=== PATIENT | male | born 1980 | race Caucasian/White ===

== ENCOUNTER 2018-12-16 23:25 | Emergency (ER) | payer BC ==
[2018-12-17] MEDS ORDERED: Metoprolol Succinate 50 MG Tab.ER PO ONE ×2 (00:56→00:57)
[2018-12-17] MEDS ORDERED: Metoprolol Tartrate 50 MG Tab PO ONE (00:57)
--- NOTE | 2018-12-17 01:07 | EDM.PDOC ---
ED HPI GENERAL MEDICAL PROBLEM - General Chief Complaint: Cardiovascular Problem Stated Complaint: HIGH BLOOD PRESSURE,WITHDRAW Time Seen by Provider: 12/17/18 00:40 Source of Information: Reports: Patient History Limitations: Reports: No Limitations - History of Present Illness INITIAL COMMENTS - FREE TEXT/NARRATIVE: 38-year-old male sent in from [facility] because of persistent hypertension, he supposed to be on metoprolol and has not been taking his medication since July. He is transferring to [facility] tomorrow for extended treatment. He has no symptoms such as chest pain, shortness of breath or headache. 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 (see below) Other Treatments STEEL SPAR OPERATOR: none - Related Data Allergies Allergy/AdvReac Type Severity Reaction Status Date / Time No Known Allergies Allergy Verified 12/17/18 00:31 Home Meds: Home Meds Diazepam [Valium] 5 mg PO ASDIRECTED PRN 12/17/18 [History] LORazepam [Ativan] 3 mg PO ASDIRECTED PRN 12/17/18 [History] Metoprolol Succinate [Toprol XL 100mg] 100 mg PO DAILY 12/17/18 [History] cloNIDine [Catapres] 0.1 - 0.3 mg PO ASDIRECTED PRN 12/17/18 [History] Past Medical History HEENT History: Reports: Impaired Vision Cardiovascular History: Reports: Hypertension Musculoskeletal History: Reports: Gout Psychiatric History: Reports: Addiction, Anxiety, PTSD - Infectious Disease History Infectious Disease History: Reports: Chicken Pox - Past Surgical History HEENT Surgical History: Reports: Tonsillectomy Musculoskeletal Surgical History: Reports: Arthroscopic Knee Social & Family History - Tobacco Use Smoking Status *Q: Never Smoker Second Hand Smoke Exposure: No - Caffeine Use Caffeine Use: Reports: Coffee - Alcohol Use Days Per Week of Alcohol Use: 7 Number of Drinks Per Day: 20 Total Drinks Per Week: 140 - Recreational Drug Use Recreational Drug Use: Yes Drug Use in Last 12 Months: Yes Recreational Drug Type: Reports: Marijuana/Hashish Recreational Drug Use Frequency: Rarely ED ROS GENERAL - Review of Systems Review Of Systems: See Below Constitutional: Denies: Fever, Chills HEENT: Denies: Vision Change Respiratory: Denies: Shortness of Breath Cardiovascular: Denies: Chest Pain GI/Abdominal: Denies: Abdominal Pain, Nausea, Vomiting Skin: Reports: No Symptoms Neurological: Denies: Headache ED EXAM, GENERAL - Physical Exam Exam: See Below Exam Limited By: No Limitations General Appearance: Alert, No Apparent Distress Eye Exam: Bilateral Eye: Normal Inspection Respiratory/Chest: No Respiratory Distress, Lungs Clear Cardiovascular: Regular Rate, Rhythm Extremities: No: Pedal Edema Neurological: Alert Psychiatric: Normal Affect, Normal Mood Skin Exam: Warm, Dry Course - Vital Signs Last Recorded V/S: Last Vital Signs Temp 96.2 F 12/17/18 00:43 Pulse 66 12/17/18 02:38 Resp 14 12/17/18 02:38 BP 144/83 H 12/17/18 02:38 Pulse Ox 91 L 12/17/18 02:38 - Orders/Labs/Meds Meds: Medications Discontinued Medications Generic Name Dose Route Start Last Admin Trade Name Apolinar PRN Reason Stop Dose Admin Metoprolol Succinate 100 mg 12/17/18 00:57 12/17/18 01:02 Toprol Xl PO 12/17/18 00:58 100 mg ONETIME ONE Administration Metoprolol Tartrate 50 mg 12/17/18 00:57 12/17/18 01:02 Lopressor PO 12/17/18 00:58 50 mg ONETIME ONE Administration - Re-Assessments/Exams Free Text/Narrative Re-Assessment/Exam: 12/17/18 02:32 Blood pressure was initially 169/102. Patient was given 50 mg a short acting metoprolol, and 100 mg of extended release metoprolol. He was observed for the next 90 minutes and blood pressure normalized to 144/83 at discharge. He remained asymptomatic. Departure - Departure Time of Disposition: 03:48 Disposition: DC/Tfer to Other 70 Reason for Transfer *Q: Other Clinical Impression: Hypertension Qualifiers: Hypertension type: essential hypertension Qualified Code(s): I10 - Essential ( primary) hypertension Instructions: Hypertension, [id number] Referrals: PCP,None [Primary Care Provider] - Forms: ED Department Discharge Care Plan Goals: Restart metoprolol as prescribed tomorrow and finish your EtOH treatment as planned.
== END 2018-12-17 03:48 | disposition other institution (70) ==
LOC: JP.ED 23:25
DX: I10 Essential (primary) hypertension (principal); Z79.899 Other long term (current) drug therapy
CPT/HCPCS: 99284; A9270

== ENCOUNTER 2019-01-22 22:34 | Emergency (ER) | payer BC ==
[2019-01-22] MEDS ORDERED: Ondansetron 4 MG Tab.DIS PO ONE (22:56)
[2019-01-22] MEDS ORDERED: Aluminum Hydroxide/Magnesium Hydroxide/Simethicone Susp 30 ML Cup PO ONE (23:07)
--- NOTE | 2019-01-22 23:12 | EDM.PDOCBH ---
ED HPI GENERAL MEDICAL PROBLEM - General Chief Complaint: Drug or Alcohol Abuse Stated Complaint: EVAL Time Seen by Provider: 01/22/19 23:00 Source of Information: Reports: Patient, Old Records, RN History Limitations: Reports: No Limitations - History of Present Illness INITIAL COMMENTS - FREE TEXT/NARRATIVE: 38 yo male presents requesting medical clearance so he can go to detox. Was to [facility] in early December of this year. Last drank a few ounces of vodka with Mountain Dew a couple hrs ago, but vomited it up. Has been vomiting more lately. Has some epigastric pain. No blood in his emesis. Has some nausea now. Onset: Gradual Duration: Day(s):, Getting Worse Location: Reports: Abdomen Quality: Reports: Burning Severity: Moderate Improves with: Reports: None Worsens with: Reports: Other (drinking ETOH) Context: Reports: Other (hx of alcohol abuse) Associated Symptoms: Reports: Nausea/Vomiting. 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 (see below) (none) denies pain Pain Score (Numeric/FACES): 0 - Related Data Allergies Allergy/AdvReac Type Severity Reaction Status Date / Time No Known Allergies Allergy Verified 01/22/19 22:48 Home Meds: Home Meds Diazepam [Valium] 5 mg PO ASDIRECTED PRN 12/17/18 [History] LORazepam [Ativan] 3 mg PO ASDIRECTED PRN 12/17/18 [History] Metoprolol Succinate [Toprol XL 100mg] 100 mg PO DAILY 12/17/18 [History] cloNIDine [Catapres] 0.1 - 0.3 mg PO ASDIRECTED PRN 12/17/18 [History] QUEtiapine Fumarate [Quetiapine Fumarate] 25 mg PO BEDTIME 01/22/19 [History] Past Medical History HEENT History: Reports: Impaired Vision Cardiovascular History: Reports: Hypertension Musculoskeletal History: Reports: Gout Psychiatric History: Reports: Addiction, Anxiety, PTSD, Other (See Below) Other Psychiatric History: ETOH addiction - Infectious Disease History Infectious Disease History: Reports: Chicken Pox - Past Surgical History HEENT Surgical History: Reports: Tonsillectomy Musculoskeletal Surgical History: Reports: Arthroscopic Knee Social & Family History - Tobacco Use Smoking Status *Q: Never Smoker - Caffeine Use Caffeine Use: Reports: Coffee, Soda - Alcohol Use Date of Last Drink: 01/22/19 Time of Last Drink: 21:00 - Recreational Drug Use Recreational Drug Use: No ED ROS GENERAL - Review of Systems Review Of Systems: See Below Constitutional: Reports: No Symptoms HEENT: Reports: No Symptoms Respiratory: Reports: No Symptoms Cardiovascular: Reports: Lightheadedness (with standing) GI/Abdominal: Reports: Abdominal Pain (epigastric) : Reports: No Symptoms Musculoskeletal: Reports: No Symptoms Skin: Reports: No Symptoms Neurological: Reports: No Symptoms Psychiatric: Reports: No Symptoms ED EXAM, BEHAVIORAL HEALTH - Physical Exam Exam: See Below Exam Limited By: No Limitations General Appearance: Alert, WD/WN, No Apparent Distress Eye Exam: Bilateral Eye: Conjunctival Injection Ears: Normal External Exam, Normal Canal, Hearing Grossly Normal, Normal TMs Nose: Normal Inspection, No Blood Throat/Mouth: Normal Lips, Normal Oropharynx, Normal Voice, No Airway Compromise , Other (slightly dry oral mucosa) Head: Atraumatic, Normocephalic Neck: Normal Inspection Respiratory/Chest: No Respiratory Distress, Lungs Clear, Normal Breath Sounds, No Accessory Muscle Use Cardiovascular: Regular Rate, Rhythm, No Edema GI/Abdominal: Normal Bowel Sounds, Soft, No Distention, Tender (epigastrium). No: Non-Tender Back Exam: Normal Inspection. No: CVA Tenderness (R), CVA Tenderness (L) Extremities: Normal Inspection, Normal Range of Motion, Non-Tender, No Pedal Edema Neurological: Alert, Normal Mood/Affect, CN II-XII Intact, Normal Cognition, No Motor/Sensory Deficits, Oriented x 3 Psychiatric: Alert, Normal Affect, Normal Cognition, Normal Mood, Oriented Skin Exam: Warm, Dry, Intact, Normal color, No rash COURSE, BEHAVIORAL HEALTH COMP - Course Vital Signs: Last Vital Signs Temp 35.2 C L 01/22/19 22:50 Pulse 61 01/22/19 22:50 Resp 18 01/22/19 22:50 BP 160/91 H 01/22/19 22:50 Pulse Ox 97 01/22/19 22:50 Orders, Labs, Meds: Active Orders 24 hr Category Date Time Status MVI, Adult with Vitamin K [Infuvite Adult] 10 ml Med 01/22/19 23:30 Active Thiamine [Vitamin B-1] 100 mg Folic Acid 1 mg Magnesium Sulfate [Magnesium Sulfate 50%] 3 gm Sodium Chloride 0.9% [Normal Saline] 1,000 ml IV ASDIRECTED Pantoprazole [ProTONIX] Med 01/22/19 23:30 Active 40 mg PO DAILY Medication Orders Multivitamins/Minerals 10 ml/Thiamine HCl 100 mg/ Folic Acid 1 mg/ Magnesium Sulfate 3 gm/ Sodium Chloride 1,017.2 mls @ 500 mls/hr IV ASDIRECTED PAULINE Last Admin: 01/22/19 23:47 Dose: 500 mls/hr Pantoprazole Sodium (Protonix) 40 mg PO DAILY PAULINE Last Admin: 01/22/19 23:48 Dose: 40 mg Laboratory Tests 01/22/19 01/22/19 Range/Units 23:05 23:18 Urine Opiates Screen Negative (NEGATIVE) Ur Oxycodone Screen Negative (NEGATIVE) Urine Methadone Screen Negative (NEGATIVE) Ur Propoxyphene Screen Negative (NEGATIVE) Ur Barbiturates Screen Negative (NEGATIVE) Ur Tricyclics Screen Negative (NEGATIVE) Ur Phencyclidine Scrn Negative (NEGATIVE) Ur Amphetamine Screen Negative (NEGATIVE) U Methamphetamines Scrn Negative (NEGATIVE) Urine MDMA Screen Negative (NEGATIVE) U Benzodiazepines Scrn Presumptive positive H (NEGATIVE) U Cocaine Metab Screen Negative (NEGATIVE) U Marijuana (THC) Screen Negative (NEGATIVE) Ethyl Alcohol 19 mg/dL Medications Generic Name Dose Route Start Last Admin Trade Name Freq PRN Reason Stop Dose Admin Multivitamins/Minerals 10 ml/ 1,017.2 mls @ 500 mls/hr 01/22/19 23:30 23:47 Thiamine HCl 100 mg/ Folic IV 500 mls/hr Acid 1 mg/ Magnesium Sulfate 3 ASDIRECTED PAULINE Administration gm/ Sodium Chloride Pantoprazole Sodium 40 mg 01/22/19 23:30 01/22/19 23:48 Protonix PO 40 mg DAILY PAULINE Administration Discontinued Medications Generic Name Dose Route Start Last Admin Trade Name Freq PRN Reason Stop Dose Admin Al Hydroxide/Mg Hydroxide 30 ml 01/22/19 23:07 01/22/19 23:15 Mag-Al Plus PO 01/22/19 23:08 30 ml ONETIME ONE Administration Ketorolac Tromethamine 30 mg 01/22/19 23:29 01/22/19 23:48 Toradol IVPUSH 01/22/19 23:30 30 mg ONETIME ONE Administration Ondansetron HCl 4 mg 01/22/19 22:56 01/22/19 23:02 Zofran Odt PO 01/22/19 22:57 4 mg ONETIME ONE Administration Ondansetron HCl 4 mg 01/22/19 23:30 01/22/19 23:48 Zofran IVPUSH 01/22/19 23:31 4 mg ONETIME ONE Administration Departure - Departure Time of Disposition: 02:30 Disposition: DC/Tfer to Other 70 Condition: Fair Clinical Impression: Alcohol abuse Alcohol withdrawal syndrome Qualifiers: Complication of substance-induced condition: with unspecified complication Qualified Code(s): F10.239 - Alcohol dependence with withdrawal, unspecified Alcoholic gastritis without bleeding Qualifiers: Chronicity: acute Qualified Code(s): K29.20 - Alcoholic gastritis without bleeding - Discharge Information *PRESCRIPTION DRUG MONITORING PROGRAM REVIEWED*: No *COPY OF PRESCRIPTION DRUG MONITORING REPORT IN PATIENT VALERIY: No Instructions: Gastritis, Adult, [id number] Referrals: PCP,None [Primary Care Provider] - Forms: ED Department Discharge Additional Instructions: Take omeprazole daily. Avoid ibuprofen, Aleve, or aspirin for the next few weeks. Avoid alcohol. Recheck with your provider when you get out of [place] regarding your BP and your gastritis. - My Orders Last 24 Hours: My Active Orders 01/22/19 23:30 MVI, Adult with Vitamin K [Infuvite Adult] 10 ml Thiamine [Vitamin B-1] 100 mg Folic Acid 1 mg Magnesium Sulfate [Magnesium Sulfate 50%] 3 gm Sodium Chloride 0.9% [Normal Saline] 1,000 ml IV ASDIRECTED Pantoprazole [ProTONIX] 40 mg PO DAILY - Assessment/Plan Last 24 Hours: My Active Orders 01/22/19 23:30 MVI, Adult with Vitamin K [Infuvite Adult] 10 ml Thiamine [Vitamin B-1] 100 mg Folic Acid 1 mg Magnesium Sulfate [Magnesium Sulfate 50%] 3 gm Sodium Chloride 0.9% [Normal Saline] 1,000 ml IV ASDIRECTED Pantoprazole [ProTONIX] 40 mg PO DAILY
[2019-01-22] MEDS ORDERED: Ketorolac 30 MG/ML SDV IVPUSH ONE (23:29)
[2019-01-22] MEDS ORDERED: MVI, Adult with Vitamin K 10 ML, Thiamine 100 MG, Folic Acid 1 MG, Magnesium Sulfate 3 ... IV SCH ×5 (23:30)
[2019-01-22] MEDS ORDERED: Ondansetron 4 MG/2 ML SDV IVPUSH ONE (23:30)
[2019-01-22] MEDS ORDERED: Pantoprazole 40 MG Tab.CR PO SCH (23:30)
== END 2019-01-23 02:40 | disposition other institution (70) ==
LOC: JP.ED 22:34
DX: K29.20 Alcoholic gastritis without bleeding (principal); F10.239 Alcohol dependence with withdrawal, unspecified; Y90.0 Blood alcohol level of less than 20 mg/100 ml; I10 Essential (primary) hypertension; F41.9 Anxiety disorder, unspecified; M10.9 Gout, unspecified; Z79.899 Other long term (current) drug therapy
CPT/HCPCS: 36415; 80305; 96365; 96366; 96375; 99284; A9270; G0480; J1885; J2405; J3411; J3475; J7030; J3490

== ENCOUNTER 2019-02-21 10:24 | Emergency (ER) | payer BC ==
--- NOTE | 2019-02-21 11:26 | EDM.PDOCBH ---
ED HPI GENERAL MEDICAL PROBLEM - General Chief Complaint: Drug or Alcohol Abuse Stated Complaint: WANTING TO GO [facility] Time Seen by Provider: 02/21/19 11:20 Source of Information: Reports: Patient, RN Notes Reviewed History Limitations: Reports: No Limitations - History of Present Illness INITIAL COMMENTS - FREE TEXT/NARRATIVE: 38-year-old gentleman presents emergency department today requesting transportation to detox, last drink last night uses beer and vodka he has been to the detox facility in the past he does have a plan for when he gets out no other complaints - Related Data Allergies Allergy/AdvReac Type Severity Reaction Status Date / Time No Known Allergies Allergy Verified 01/22/19 22:48 Home Meds: Home Meds Metoprolol Succinate [Toprol XL 100mg] 100 mg PO DAILY 12/17/18 [History] QUEtiapine Fumarate [Quetiapine Fumarate] 25 mg PO BEDTIME 01/22/19 [History] Omeprazole 40 mg PO BEDTIME #30 cap.sr 01/23/19 [Rx] Past Medical History HEENT History: Reports: Impaired Vision Cardiovascular History: Reports: Hypertension Musculoskeletal History: Reports: Gout Psychiatric History: Reports: Addiction, Anxiety, PTSD, Other (See Below) Other Psychiatric History: ETOH addiction - Infectious Disease History Infectious Disease History: Reports: Chicken Pox - Past Surgical History HEENT Surgical History: Reports: Tonsillectomy Musculoskeletal Surgical History: Reports: Arthroscopic Knee Social & Family History - Tobacco Use Smoking Status *Q: Never Smoker - Caffeine Use Caffeine Use: Reports: Coffee, Soda - Recreational Drug Use Recreational Drug Use: No ED ROS GENERAL - Review of Systems Review Of Systems: See Below Constitutional: Reports: No Symptoms Respiratory: Reports: No Symptoms Cardiovascular: Reports: No Symptoms GI/Abdominal: Reports: No Symptoms ED EXAM, BEHAVIORAL HEALTH - Physical Exam Exam: See Below Exam Limited By: No Limitations General Appearance: Alert, WD/WN, No Apparent Distress Respiratory/Chest: No Respiratory Distress, Lungs Clear, Normal Breath Sounds, No Accessory Muscle Use, Chest Non-Tender Cardiovascular: Regular Rate, Rhythm, No Murmur GI/Abdominal: Soft, Non-Tender COURSE, BEHAVIORAL HEALTH COMP - Course Vital Signs: Last Vital Signs Temp 95.1 F L 02/21/19 11:10 Pulse 78 02/21/19 11:10 Resp 16 02/21/19 11:10 BP 145/84 H 02/21/19 11:10 Pulse Ox 95 02/21/19 11:10 Orders, Labs, Meds: Laboratory Tests 02/21/19 02/21/19 02/21/19 Range/Units 11:23 11:36 11:36 WBC 7.7 (4.5-11.0) K/uL RBC 4.93 (4.30-5.90) M/uL Hgb 14.6 (12.0-15.0) g/dL Hct 43.7 (40.0-54.0) % MCV 89 (80-98) fL MCH 30 (27-31) pg MCHC 33 (32-36) % Plt Count 179 (150-400) K/uL Sodium 136 L (140-148) mmol/L Potassium 4.0 (3.6-5.2) mmol/L Chloride 98 L (100-108) mmol/L Carbon Dioxide 23 (21-32) mmol/L Anion Gap 19.0 H (5.0-14.0) mmol/L BUN 12 (7-18) mg/dL Creatinine 0.9 (0.8-1.3) mg/dL Est Cr Clr Drug Dosing 112.65 mL/min Estimated GFR (MDRD) > 60 (>60) Glucose 219 H (74-106) mg/dL Calcium 8.4 L (8.5-10.1) mg/dL Total Bilirubin 0.5 (0.2-1.0) mg/dL AST 59 H (15-37) U/L ALT 62 (12-78) U/L Alkaline Phosphatase 90 (46-116) U/L Total Protein 7.1 (6.4-8.2) g/dL Albumin 3.4 (3.4-5.0) g/dL Globulin 3.7 H (2.3-3.5) g/dL Albumin/Globulin Ratio 0.9 L (1.2-2.2) Urine Opiates Screen Negative (NEGATIVE) Ur Oxycodone Screen Negative (NEGATIVE) Urine Methadone Screen Negative (NEGATIVE) Ur Propoxyphene Screen Negative (NEGATIVE) Ur Barbiturates Screen Negative (NEGATIVE) Ur Tricyclics Screen Negative (NEGATIVE) Ur Phencyclidine Scrn Negative (NEGATIVE) Ur Amphetamine Screen Negative (NEGATIVE) U Methamphetamines Scrn Negative (NEGATIVE) Urine MDMA Screen Negative (NEGATIVE) U Benzodiazepines Scrn Presumptive positive H (NEGATIVE) U Cocaine Metab Screen Negative (NEGATIVE) U Marijuana (THC) Screen Negative (NEGATIVE) Ethyl Alcohol mg/dL 02/21/19 Range/Units 11:36 WBC (4.5-11.0) K/uL RBC (4.30-5.90) M/uL Hgb (12.0-15.0) g/dL Hct (40.0-54.0) % MCV (80-98) fL MCH (27-31) pg MCHC (32-36) % Plt Count (150-400) K/uL Sodium (140-148) mmol/L Potassium (3.6-5.2) mmol/L Chloride (100-108) mmol/L Carbon Dioxide (21-32) mmol/L Anion Gap (5.0-14.0) mmol/L BUN (7-18) mg/dL Creatinine (0.8-1.3) mg/dL Est Cr Clr Drug Dosing mL/min Estimated GFR (MDRD) (>60) Glucose (74-106) mg/dL Calcium (8.5-10.1) mg/dL Total Bilirubin (0.2-1.0) mg/dL AST (15-37) U/L ALT (12-78) U/L Alkaline Phosphatase (46-116) U/L Total Protein (6.4-8.2) g/dL Albumin (3.4-5.0) g/dL Globulin (2.3-3.5) g/dL Albumin/Globulin Ratio (1.2-2.2) Urine Opiates Screen (NEGATIVE) Ur Oxycodone Screen (NEGATIVE) Urine Methadone Screen (NEGATIVE) Ur Propoxyphene Screen (NEGATIVE) Ur Barbiturates Screen (NEGATIVE) Ur Tricyclics Screen (NEGATIVE) Ur Phencyclidine Scrn (NEGATIVE) Ur Amphetamine Screen (NEGATIVE) U Methamphetamines Scrn (NEGATIVE) Urine MDMA Screen (NEGATIVE) U Benzodiazepines Scrn (NEGATIVE) U Cocaine Metab Screen (NEGATIVE) U Marijuana (THC) Screen (NEGATIVE) Ethyl Alcohol 31 mg/dL Departure - Departure Time of Disposition: 12:24 Disposition: DC/Tfer to Inpt Rehab Fac 62 Condition: Poor Clinical Impression: Alcohol abuse - Discharge Information Referrals: PCP,None [Primary Care Provider] - Forms: ED Department Discharge - Assessment/Plan Plan: Assessment Acuity = acute Site and laterality = alcohol abuse and dependence Etiology = EtOH Manifestations = elevated liver enzymes Location of injury = Home Lab values = CBC unremarkable, alcohol elevated at 31 benzodiazepines positive in the urine drug screen glucose elevated at 219 consistent hyperglycemia 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
== END 2019-02-21 13:17 ==
LOC: JP.ED 10:24
DX: F10.129 Alcohol abuse with intoxication, unspecified (principal); Y90.1 Blood alcohol level of 20-39 mg/100 ml; I10 Essential (primary) hypertension; F41.9 Anxiety disorder, unspecified; Z79.899 Other long term (current) drug therapy
CPT/HCPCS: 36415; 80053; 80305-QW; 85027; 99284; G0480

== ENCOUNTER 2020-06-04 16:39 | Emergency (ER) | payer BC ==
[2020-06-04] MEDS ORDERED: Multivitamins with Iron/Calcium/Folic Acid/Minerals Tab PO ONE (17:18)
--- NOTE | 2020-06-04 17:25 | EDM.PDOCBH ---
ED HPI GENERAL MEDICAL PROBLEM - General Chief Complaint: Drug or Alcohol Abuse Stated Complaint: DETOX Time Seen by Provider: 06/04/20 17:20 Source of Information: Reports: Patient History Limitations: Reports: Intoxication - History of Present Illness INITIAL COMMENTS - FREE TEXT/NARRATIVE: 40-year-old male with chronic alcohol abuse problems, has been to [place] twice in the last year. He came back from [place] in March this year and started drinking and has been drinking fairly regularly on a daily basis. Today felt he needed treatment and detox so came in. No other medical problems or concerns. Onset: Other (Started drinking in early March) Duration: Chronic Associated Symptoms: Reports: Nausea/Vomiting - Related Data Allergies Allergy/AdvReac Type Severity Reaction Status Date / Time No Known Allergies Allergy Verified 06/04/20 17:05 Home Meds: Home Meds Metoprolol Succinate [Toprol XL 100mg] 100 mg PO DAILY 12/17/18 [History] QUEtiapine Fumarate [Quetiapine Fumarate] 25 mg PO BEDTIME 01/22/19 [History] Omeprazole 40 mg PO BEDTIME #30 cap.sr 01/23/19 [Rx] ARIPiprazole [Abilify] 2 mg PO BEDTIME 06/04/20 [History] Allopurinol [Zyloprim] 300 mg PO DAILY 06/04/20 [History] Citalopram Hydrobromide [Celexa] 10 mg PO DAILY 06/04/20 [History] Gabapentin [Neurontin] 400 mg PO TID 06/04/20 [History] traZODone HCl [Trazodone HCl] 200 mg PO BEDTIME 06/04/20 [History] Past Medical History HEENT History: Reports: Impaired Vision Cardiovascular History: Reports: Hypertension Musculoskeletal History: Reports: Gout Psychiatric History: Reports: Addiction, Anxiety, PTSD, Other (See Below) Other Psychiatric History: ETOH addiction - Infectious Disease History Infectious Disease History: Reports: Chicken Pox - Past Surgical History HEENT Surgical History: Reports: Tonsillectomy Musculoskeletal Surgical History: Reports: Arthroscopic Knee Social & Family History - Tobacco Use Tobacco Use Status *Q: Light Tobacco User Years of Tobacco use: 30 Packs/Tins Daily: 0.2 - Caffeine Use Caffeine Use: Reports: Coffee - Alcohol Use Days Per Week of Alcohol Use: 7 Number of Drinks Per Day: 16 Total Drinks Per Week: 112 - Recreational Drug Use Recreational Drug Use: No ED ROS GENERAL - Review of Systems Review Of Systems: See Below Constitutional: Reports: Malaise, Decreased Appetite. Denies: Fever, Chills HEENT: Denies: Throat Pain Respiratory: Denies: Shortness of Breath, Cough Cardiovascular: Denies: Chest Pain GI/Abdominal: Reports: Nausea, Vomiting. Denies: Abdominal Pain : Reports: No Symptoms Neurological: Reports: Weakness. Denies: Headache ED EXAM, BEHAVIORAL HEALTH - Physical Exam Exam: See Below Exam Limited By: No Limitations General Appearance: Alert, No Apparent Distress Eye Exam: Bilateral Eye: Conjunctival Injection (Hydration looks normal, no jaundice) Head: Atraumatic Respiratory/Chest: No Respiratory Distress Cardiovascular: Regular Rate, Rhythm. No: Tachycardia GI/Abdominal: Soft Neurological: Alert, Oriented x 3 Psychiatric: Alert, Flat Affect, Other (Intoxicated, dysarthria) Skin Exam: Warm, Dry COURSE, BEHAVIORAL HEALTH COMP - Course Vital Signs: Last Vital Signs Temp 97.4 F 06/04/20 17:05 Pulse 81 06/04/20 17:05 Resp 16 06/04/20 17:05 BP 137/79 06/04/20 17:05 Pulse Ox 97 06/04/20 17:05 Orders, Labs, Meds: Laboratory Tests 06/04/20 06/04/20 06/04/20 Range/Units 17:02 17:02 17:02 WBC 13.2 H (4.5-11.0) K/uL RBC 5.55 (4.30-5.90) M/uL Hgb 15.6 H (12.0-15.0) g/dL Hct 46.4 (40.0-54.0) % MCV 84 (80-98) fL MCH 28 (27-31) pg MCHC 34 (32-36) % Plt Count 236 (150-400) K/uL Neut % (Auto) 58 (36-66) % Lymph % (Auto) 32 (24-44) % [place] % (Auto) 9 H (2-6) % Eos % (Auto) 1 L (2-4) % Baso % (Auto) 1 (0-1) % Sodium 135 L (140-148) mmol/L Potassium 3.6 (3.6-5.2) mmol/L Chloride 97 L (100-108) mmol/L Carbon Dioxide 26 (21-32) mmol/L Anion Gap 15.6 H (5.0-14.0) mmol/L BUN 12 (7-18) mg/dL Creatinine 0.9 (0.8-1.3) mg/dL Est Cr Clr Drug Dosing 110.40 mL/min Estimated GFR (MDRD) > 60 (>60) Glucose 298 H (74-106) mg/dL Calcium 8.4 L (8.5-10.1) mg/dL Urine Opiates Screen (NEGATIVE) Ur Oxycodone Screen (NEGATIVE) Urine Methadone Screen (NEGATIVE) Ur Propoxyphene Screen (NEGATIVE) Ur Barbiturates Screen (NEGATIVE) Ur Tricyclics Screen (NEGATIVE) Ur Phencyclidine Scrn (NEGATIVE) Ur Amphetamine Screen (NEGATIVE) U Methamphetamines Scrn (NEGATIVE) Urine MDMA Screen (NEGATIVE) U Benzodiazepines Scrn (NEGATIVE) U Cocaine Metab Screen (NEGATIVE) U Marijuana (THC) Screen (NEGATIVE) Ethyl Alcohol 205 mg/dL 12/30/20 Range/Units 17:12 WBC (4.5-11.0) K/uL RBC (4.30-5.90) M/uL Hgb (12.0-15.0) g/dL Hct (40.0-54.0) % MCV (80-98) fL MCH (27-31) pg MCHC (32-36) % Plt Count (150-400) K/uL Neut % (Auto) (36-66) % Lymph % (Auto) (24-44) % [place] % (Auto) (2-6) % Eos % (Auto) (2-4) % Baso % (Auto) (0-1) % Sodium (140-148) mmol/L Potassium (3.6-5.2) mmol/L Chloride (100-108) mmol/L Carbon Dioxide (21-32) mmol/L Anion Gap (5.0-14.0) mmol/L BUN (7-18) mg/dL Creatinine (0.8-1.3) mg/dL Est Cr Clr Drug Dosing mL/min Estimated GFR (MDRD) (>60) Glucose (74-106) mg/dL Calcium (8.5-10.1) mg/dL Urine Opiates Screen Negative (NEGATIVE) Ur Oxycodone Screen Negative (NEGATIVE) Urine Methadone Screen Negative (NEGATIVE) Ur Propoxyphene Screen Negative (NEGATIVE) Ur Barbiturates Screen Negative (NEGATIVE) Ur Tricyclics Screen Negative (NEGATIVE) Ur Phencyclidine Scrn Negative (NEGATIVE) Ur Amphetamine Screen Negative (NEGATIVE) U Methamphetamines Scrn Negative (NEGATIVE) Urine MDMA Screen Negative (NEGATIVE) U Benzodiazepines Scrn Negative (NEGATIVE) U Cocaine Metab Screen Negative (NEGATIVE) U Marijuana (THC) Screen Negative (NEGATIVE) Ethyl Alcohol mg/dL Medications Discontinued Medications Generic Name Dose Route Start Last Admin Trade Name Freq PRN Reason Stop Dose Admin Sodium Chloride 1,000 mls @ 1,000 mls/hr 06/04/20 17:30 06/04/20 17:20 Normal Saline IV 1,000 mls/hr ASDIRECTED PAULINE Administration Multivitamins/Minerals 1 tab 06/04/20 17:18 06/04/20 17:39 Thera M Plus PO 06/04/20 17:19 1 tab ONETIME ONE Administration Re-Assessment/Re-Exam: [facility] has already been contacted and they do have a bed for him if he is cleared medically. He will be given 1 L of normal saline along with a multivitamin, urine drug screen, CBC, BMP and EtOH level will be drawn. Drug screen is negative, EtOH level is 0.205 and after the patient receives his fluids he will be stable for transfer to detox. Departure - Departure Time of Disposition: 22:03 Disposition: DC/Tfer to Other 70 Clinical Impression: Alcohol abuse - Discharge Information Instructions: Alcohol Use Disorder Referrals: PCP,None [Primary Care Provider] - Forms: ED Department Discharge Care Plan Goals: Go to [facility] for detox and follow their recommendations for maintaining sobriety after detox. Sepsis Event Note (ED) - Evaluation Sepsis Screening Result: No Definite Risk
[2020-06-04] MEDS ORDERED: Sodium Chloride 0.9% 1,000 ML IV SCH (17:30)
== END 2020-06-04 21:40 | disposition other institution (70) ==
LOC: JP.ED 16:39
DX: F10.129 Alcohol abuse with intoxication, unspecified (principal); Y90.7 Blood alcohol level of 200-239 mg/100 ml; I10 Essential (primary) hypertension; M10.9 Gout, unspecified; F41.9 Anxiety disorder, unspecified; F43.10 Post-traumatic stress disorder, unspecified; F17.200 Nicotine dependence, unspecified, uncomplicated; Z90.49 Acquired absence of other specified parts of digestive tract; Z79.899 Other long term (current) drug therapy
CPT/HCPCS: 36415; 80048; 80305; 80307; 85025; 99284; A9270; J7030

== ENCOUNTER 2020-07-17 20:30 | Emergency (ER) | payer BC ==
--- NOTE | 2020-07-17 21:14 | EDM.PDOCBH ---
ED HPI GENERAL MEDICAL PROBLEM - General Chief Complaint: Drug or Alcohol Abuse Stated Complaint: EVAL Time Seen by Provider: 07/17/20 21:05 Source of Information: Reports: Patient, Old Records, RN History Limitations: Reports: No Limitations - History of Present Illness INITIAL COMMENTS - FREE TEXT/NARRATIVE: 40 yo male presents requesting medical clearance before admission to [facility]. Last drank about 2.5 hrs ago. Has been to [facility] in the past. Has no other medical concerns at this time. Onset: Unknown/Unsure Duration: Chronic (alcoholic) Location: Reports: Generalized Quality: Reports: Other (no pain reported) Severity: Moderate Improves with: Reports: Other (Treatment at alcohol facility) Worsens with: Reports: Other (Continued alcohol use) Context: Reports: Other (See HPI) Associated Symptoms: Reports: Other (current intoxication) Treatments GRINDER OUTSIDE DIAMETER: Reports: Other (see below) (none) - Related Data Allergies Allergy/AdvReac Type Severity Reaction Status Date / Time No Known Allergies Allergy Verified 07/17/20 20:43 Home Meds: Home Meds Metoprolol Succinate [Toprol XL 100mg] 100 mg PO DAILY 12/17/18 [History] QUEtiapine Fumarate [Quetiapine Fumarate] 25 mg PO BEDTIME 01/22/19 [History] Omeprazole 40 mg PO BEDTIME #30 cap.sr 01/23/19 [Rx] ARIPiprazole [Abilify] 5 mg PO BEDTIME 06/04/20 [History] Allopurinol [Zyloprim] 300 mg PO DAILY 06/04/20 [History] Citalopram Hydrobromide [Celexa] 10 mg PO DAILY 06/04/20 [History] Gabapentin [Neurontin] 400 mg PO TID 06/04/20 [History] traZODone HCl [Trazodone HCl] 200 mg PO BEDTIME 06/04/20 [History] Past Medical History HEENT History: Reports: Impaired Vision Cardiovascular History: Reports: Hypertension Gastrointestinal History: Reports: GERD Musculoskeletal History: Reports: Gout Psychiatric History: Reports: Addiction, Anxiety, PTSD, Other (See Below) Other Psychiatric History: ETOH addiction - Infectious Disease History Infectious Disease History: Reports: Chicken Pox - Past Surgical History HEENT Surgical History: Reports: Tonsillectomy Musculoskeletal Surgical History: Reports: Arthroscopic Knee Social & Family History - Tobacco Use Tobacco Use Status *Q: Current Every Day Tobacco User Years of Tobacco use: 25 Packs/Tins Daily: 0.5 - Caffeine Use Caffeine Use: Reports: Coffee, Soda - Alcohol Use Days Per Week of Alcohol Use: 7 Number of Drinks Per Day: 18 Total Drinks Per Week: 126 - Recreational Drug Use Recreational Drug Use: No ED ROS GENERAL - Review of Systems Review Of Systems: See Below Constitutional: Reports: No Symptoms HEENT: Reports: No Symptoms GI/Abdominal: Reports: No Symptoms : Reports: No Symptoms Musculoskeletal: Reports: No Symptoms Skin: Reports: No Symptoms Neurological: Reports: No Symptoms Psychiatric: Reports: No Symptoms ED EXAM, BEHAVIORAL HEALTH - Physical Exam Exam: See Below Exam Limited By: No Limitations General Appearance: Alert, WD/WN, No Apparent Distress, Obese, Other (mild a lcohol intoxication) Eye Exam: Bilateral Eye: Normal Inspection Ears: Normal External Exam, Normal Canal, Hearing Grossly Normal, Normal TMs Nose: Normal Inspection, No Blood Throat/Mouth: Normal Inspection, Normal Lips, Normal Oropharynx, Normal Voice, No Airway Compromise Head: Atraumatic, Normocephalic Neck: Normal Inspection, Supple, Non-Tender Respiratory/Chest: No Respiratory Distress, Lungs Clear, Normal Breath Sounds, No Accessory Muscle Use Cardiovascular: Regular Rate, Rhythm, No Edema GI/Abdominal: Normal Bowel Sounds, Soft, Non-Tender. No: Distended Back Exam: Normal Inspection. No: CVA Tenderness (R), CVA Tenderness (L) Extremities: Normal Inspection, Normal Range of Motion, Non-Tender, No Pedal Edema Neurological: Alert, Normal Mood/Affect, CN II-XII Intact, Normal Cognition, No Motor/Sensory Deficits, Oriented x 3 Psychiatric: Alert, Normal Affect, Normal Cognition, Normal Mood, Oriented Skin Exam: Warm, Dry, Intact, Normal color, No rash COURSE, BEHAVIORAL HEALTH COMP - Course Vital Signs: Last Vital Signs Temp 36.7 C 07/17/20 20:41 Pulse 105 H 07/17/20 20:41 Resp 18 07/17/20 20:41 BP 162/91 H 07/17/20 20:41 Pulse Ox 94 L 07/17/20 20:41 Orders, Labs, Meds: Laboratory Tests 07/17/20 07/17/20 Range/Units 20:52 20:54 Urine Opiates Screen Negative (NEGATIVE) Ur Oxycodone Screen Negative (NEGATIVE) Urine Methadone Screen Negative (NEGATIVE) Ur Propoxyphene Screen Negative (NEGATIVE) Ur Barbiturates Screen Negative (NEGATIVE) Ur Tricyclics Screen Negative (NEGATIVE) Ur Phencyclidine Scrn Negative (NEGATIVE) Ur Amphetamine Screen Negative (NEGATIVE) U Methamphetamines Scrn Negative (NEGATIVE) Urine MDMA Screen Negative (NEGATIVE) U Benzodiazepines Scrn Negative (NEGATIVE) U Cocaine Metab Screen Negative (NEGATIVE) U Marijuana (THC) Screen Negative (NEGATIVE) Ethyl Alcohol 156 mg/dL Medical Clearance: 07/17/20 22:22 Medically clear to go to [facility]. Departure - Departure Time of Disposition: 22:25 Disposition: DC/Tfer to Other Condition: Fair Clinical Impression: Alcohol intoxication Qualifiers: Complication of substance-induced condition: with unspecified complication Qualified Code(s): F10.929 - Alcohol use, unspecified with intoxication, unspe cified Alcohol dependence Qualifiers: Substance use status: with intoxication Complication of substance-induced condition: uncomplicated Qualified Code(s): F10.220 - Alcohol dependence with intoxication, uncomplicated - Discharge Information *PRESCRIPTION DRUG MONITORING PROGRAM REVIEWED*: Not Applicable *COPY OF PRESCRIPTION DRUG MONITORING REPORT IN PATIENT VALERIY: Not Applicable Referrals: PCP,None [Primary Care Provider] - Forms: ED Department Discharge Sepsis Event Note (ED) - Evaluation Sepsis Screening Result: No Definite Risk - Focused Exam Vital Signs: Vital Signs Temp Pulse Resp BP Pulse Ox 07/17/20 20:41 36.7 C 105 H 18 162/91 H 94 L
== END 2020-07-17 23:01 | disposition other institution (70) ==
LOC: JP.ED 20:30
DX: F10.220 Alcohol dependence with intoxication, uncomplicated (principal); I10 Essential (primary) hypertension; K21.9 Gastro-esophageal reflux disease without esophagitis; M10.9 Gout, unspecified; Z72.0 Tobacco use; Z79.899 Other long term (current) drug therapy; Y90.6 Blood alcohol level of 120-199 mg/100 ml
CPT/HCPCS: 36415; 80305-QW; 80307; 99283

== ENCOUNTER 2021-02-28 22:47 | Emergency (ER) | payer BC ==
[2021-02-28] MEDS ORDERED: MVI, Adult with Vitamin K 10 ML, Thiamine 100 MG, Folic Acid 1 MG, Magnesium Sulfate 3 ... IV ONE ×5 (23:30)
--- NOTE | 2021-02-28 23:33 | EDM.PDOCBH ---
ED HPI GENERAL MEDICAL PROBLEM - General Chief Complaint: Drug or Alcohol Abuse Stated Complaint: EVAL FOR [facility] Time Seen by Provider: 02/28/21 23:02 Source of Information: Reports: Patient History Limitations: Reports: No Limitations - History of Present Illness INITIAL COMMENTS - FREE TEXT/NARRATIVE: Ralph is a 41 year-old male presenting to the ED for medical clearance to go to [place] for alcohol detox/therapy. He has been drinking a case of beer daily for the last three weeks. He had previously been sober for 8 months and had been to treatment before with success. He has had some recent life stressors that contributed to him "falling off the wagon" and breaking his sobriety. Previous history of withdrawal seizures. Denies any illicit drug use. He does chew tobacco consuming about a quarter of a tin a day. Right Upper Abdomen Pain Score (Numeric/FACES): 2 - Related Data Allergies Allergy/AdvReac Type Severity Reaction Status Date / Time No Known Allergies Allergy Verified 07/17/20 20:43 Home Meds: Home Meds Metoprolol Succinate [Toprol XL 100mg] 100 mg PO DAILY 12/17/18 [History] ARIPiprazole [Abilify] 5 mg PO BEDTIME 06/04/20 [History] Gabapentin [Neurontin] 400 mg PO TID 06/04/20 [History] allopurinoL [Zyloprim] 300 mg PO DAILY 06/04/20 [History] traZODone HCl [Trazodone HCl] 200 mg PO BEDTIME 06/04/20 [History] Past Medical History HEENT History: Reports: Impaired Vision Cardiovascular History: Reports: Hypertension Gastrointestinal History: Reports: GERD Musculoskeletal History: Reports: Gout Psychiatric History: Reports: Addiction, Anxiety, PTSD, Other (See Below) Other Psychiatric History: ETOH addiction - Infectious Disease History Infectious Disease History: Reports: Chicken Pox - Past Surgical History HEENT Surgical History: Reports: Tonsillectomy Musculoskeletal Surgical History: Reports: Arthroscopic Knee Social & Family History - Tobacco Use Years of Tobacco use: 20 Packs/Tins Daily: 0.5 - Caffeine Use Caffeine Use: Reports: Coffee, Soda, Tea - Alcohol Use Days Per Week of Alcohol Use: 7 Number of Drinks Per Day: 24 Total Drinks Per Week: 168 Date of Last Drink: 02/28/21 - Recreational Drug Use Recreational Drug Use: No ED ROS GENERAL - Review of Systems Review Of Systems: See Below Constitutional: Reports: No Symptoms HEENT: Reports: No Symptoms Respiratory: Reports: No Symptoms Cardiovascular: Reports: No Symptoms Endocrine: Reports: No Symptoms GI/Abdominal: Reports: No Symptoms : Reports: No Symptoms Musculoskeletal: Reports: No Symptoms Skin: Reports: No Symptoms Neurological: Reports: No Symptoms Psychiatric: Reports: Anxiety, Depression, Other (Patient has been drinking a case of beer per day for the last 3 weeks) Hematologic/Lymphatic: Reports: No Symptoms Immunologic: Reports: No Symptoms ED EXAM, BEHAVIORAL HEALTH - Physical Exam Exam: See Below Exam Limited By: No Limitations General Appearance: Alert, No Apparent Distress Eye Exam: Bilateral Eye: EOMI, PERRL Throat/Mouth: Normal Inspection, Normal Oropharynx, Normal Voice, No Airway Compromise Head: Atraumatic, Normocephalic Neck: Normal Inspection, Supple. No: Lymphadenopathy (R), Lymphadenopathy (L) Respiratory/Chest: No Respiratory Distress, Lungs Clear, Normal Breath Sounds Cardiovascular: Normal Peripheral Pulses, Regular Rate, Rhythm, No Murmur GI/Abdominal: Normal Bowel Sounds, Soft Back Exam: Normal Inspection Extremities: Normal Inspection, Normal Range of Motion Neurological: Alert, Normal Mood/Affect, Normal Cognition, No Motor/Sensory Deficits, Oriented x 3 Psychiatric: Alert, Normal Affect, Normal Cognition, Normal Mood, Oriented Skin Exam: Warm, Dry, Intact, Normal color COURSE, BEHAVIORAL HEALTH COMP - Course Vital Signs: Last Vital Signs Temp 36.3 C 02/28/21 23:30 Pulse 82 02/28/21 23:30 Resp 16 02/28/21 23:30 BP 182/96 H 02/28/21 23:30 Pulse Ox 97 02/28/21 23:30 Orders, Labs, Meds: Active Orders 24 hr Category Date Time Status MVI, Adult with Vitamin K [Infuvite Adult] 10 ml Med 02/28/21 23:30 Active Thiamine [Vitamin B-1] 100 mg Folic Acid 1 mg Magnesium Sulfate [Magnesium Sulfate 50%] 3 gm Sodium Chloride 0.9% [Normal Saline] 1,000 ml IV ONETIME Medication Orders Multivitamins/Minerals 10 ml/Thiamine HCl 100 mg/ Folic Acid 1 mg/ Magnesium Sulfate 3 gm/ Sodium Chloride 1,017.2 mls @ 999 mls/hr IV ONETIME ONE Stop: 03/01/21 00:31 Last Admin: 02/28/21 23:53 Dose: 999 mls/hr Documented by: RUDY Laboratory Tests 02/28/21 02/28/21 02/28/21 Range/Units 23:02 23:02 23:15 WBC 12.9 H (4.5-11.0) K/uL RBC 5.42 (4.30-5.90) M/uL Hgb 15.8 H (12.0-15.0) g/dL Hct 45.9 (40.0-54.0) % MCV 85 (80-98) fL MCH 29 (27-31) pg MCHC 34 (32-36) % Plt Count 262 (150-400) K/uL Neut % (Auto) 57.8 (36-66) % Lymph % (Auto) 30.9 (24-44) % [place] % (Auto) 8.4 H (2-6) % Eos % (Auto) 2.2 (2-4) % Baso % (Auto) 0.7 (0-1) % Sodium (140-148) mmol/L Potassium (3.6-5.2) mmol/L Chloride (100-108) mmol/L Carbon Dioxide (21-32) mmol/L Anion Gap (5.0-14.0) mmol/L BUN (7-18) mg/dL Creatinine (0.8-1.3) mg/dL Est Cr Clr Drug Dosing mL/min Estimated GFR (MDRD) (>60) Glucose (74-106) mg/dL Calcium (8.5-10.1) mg/dL Total Bilirubin (0.2-1.0) mg/dL AST (15-37) U/L ALT (12-78) U/L Alkaline Phosphatase (46-116) U/L Total Protein (6.4-8.2) g/dL Albumin (3.4-5.0) g/dL Globulin (2.3-3.5) g/dL Albumin/Globulin Ratio (1.2-2.2) Lipase (73-393) U/L Urine Color Yellow (YELLOW) Urine Appearance Clear (CLEAR) Urine pH 5.5 (5.0-8.0) Ur Specific [place] 1.020 (1.008-1.030) Urine Protein 30 H (NEGATIVE) mg/dL Urine Glucose (UA) 500 H (NEGATIVE) mg/dL Urine Ketones 15 H (NEGATIVE) mg/dL Urine Occult Blood Negative (NEGATIVE) Urine Nitrite Negative (NEGATIVE) Urine Bilirubin Negative (NEGATIVE) Urine Urobilinogen 0.2 (0.2-1.0) EU/dL Ur Leukocyte Esterase Negative (NEGATIVE) Urine Opiates Screen Negative (NEGATIVE) Ur Oxycodone Screen Negative (NEGATIVE) Urine Methadone Screen Negative (NEGATIVE) Ur Propoxyphene Screen Negative (NEGATIVE) Ur Barbiturates Screen Negative (NEGATIVE) Ur Tricyclics Screen Negative (NEGATIVE) Ur Phencyclidine Scrn Negative (NEGATIVE) Ur Amphetamine Screen Negative (NEGATIVE) U Methamphetamines Scrn Negative (NEGATIVE) Urine MDMA Screen Negative (NEGATIVE) U Benzodiazepines Scrn Negative (NEGATIVE) U Cocaine Metab Screen Negative (NEGATIVE) U Marijuana (THC) Screen Negative (NEGATIVE) Ethyl Alcohol mg/dL SARS CoV-2 RNA Rapid KYLE 02/28/21 02/28/21 02/28/21 Range/Units 23:15 23:15 23:49 WBC (4.5-11.0) K/uL RBC (4.30-5.90) M/uL Hgb (12.0-15.0) g/dL Hct (40.0-54.0) % MCV (80-98) fL MCH (27-31) pg MCHC (32-36) % Plt Count (150-400) K/uL Neut % (Auto) (36-66) % Lymph % (Auto) (24-44) % [place] % (Auto) (2-6) % Eos % (Auto) (2-4) % Baso % (Auto) (0-1) % Sodium 134 L (140-148) mmol/L Potassium 4.3 (3.6-5.2) mmol/L Chloride 95 L (100-108) mmol/L Carbon Dioxide 27 (21-32) mmol/L Anion Gap 16.3 H (5.0-14.0) mmol/L BUN 11 (7-18) mg/dL Creatinine 0.9 (0.8-1.3) mg/dL Est Cr Clr Drug Dosing 109.27 mL/min Estimated GFR (MDRD) > 60 (>60) Glucose 282 H (74-106) mg/dL Calcium 9.3 (8.5-10.1) mg/dL Total Bilirubin 0.2 D (0.2-1.0) mg/dL AST 31 (15-37) U/L ALT 50 (12-78) U/L Alkaline Phosphatase 76 (46-116) U/L Total Protein 7.5 (6.4-8.2) g/dL Albumin 4.0 (3.4-5.0) g/dL Globulin 3.5 (2.3-3.5) g/dL Albumin/Globulin Ratio 1.1 L (1.2-2.2) Lipase 172 (73-393) U/L Urine Color (YELLOW) Urine Appearance (CLEAR) Urine pH (5.0-8.0) Ur Specific [place] (1.008-1.030) Urine Protein (NEGATIVE) mg/dL Urine Glucose (UA) (NEGATIVE) mg/dL Urine Ketones (NEGATIVE) mg/dL Urine Occult Blood (NEGATIVE) Urine Nitrite (NEGATIVE) Urine Bilirubin (NEGATIVE) Urine Urobilinogen (0.2-1.0) EU/dL Ur Leukocyte Esterase (NEGATIVE) Urine Opiates Screen (NEGATIVE) Ur Oxycodone Screen (NEGATIVE) Urine Methadone Screen (NEGATIVE) Ur Propoxyphene Screen (NEGATIVE) Ur Barbiturates Screen (NEGATIVE) Ur Tricyclics Screen (NEGATIVE) Ur Phencyclidine Scrn (NEGATIVE) Ur Amphetamine Screen (NEGATIVE) U Methamphetamines Scrn (NEGATIVE) Urine MDMA Screen (NEGATIVE) U Benzodiazepines Scrn (NEGATIVE) U Cocaine Metab Screen (NEGATIVE) U Marijuana (THC) Screen (NEGATIVE) Ethyl Alcohol 17 mg/dL SARS CoV-2 RNA Rapid KYLE Negative Medications Generic Name Dose Route Start Last Admin Trade Name Apolinar PRN Reason Stop Dose Admin Multivitamins/Minerals 10 ml/ 1,017.2 mls @ 999 mls/hr 02/28/21 23:30 02/28/21 23:53 Thiamine HCl 100 mg/ Folic IV 03/01/21 00:31 999 mls/hr Acid 1 mg/ Magnesium Sulfate 3 ONETIME ONE Administration gm/ Sodium Chloride Re-Assessment/Re-Exam: I reviewed the patient's labs showing a mild leukocytosis of 12.9 with a hemoglobin of 15.8, hematocrit of 45.9, platelet count of 262,000 and normal differential. His comprehensive metabolic panel shows a sodium of 134, potassium 4.3, [place] of 95 with a bicarbonate of 27, BUN of 11 with a creatinine of 0.9 and a glucose of 282. Ethanol level is 17. Urinalysis and urine tox screen are both negative. Covid is negative. Patient is medically cleared for admission to [facility]. Medical Clearance: 03/01/21 00:13 patient is medically cleared for admission to [facility]. Departure - Departure Time of Disposition: 00:15 Disposition: DC/Tfer to [facility]pt Rehab Fac [facility] Clinical Impression: Alcohol dependence Qualifiers: Substance use status: with intoxication Complication of substance-induced condition: uncomplicated Qualified Code(s): F10.220 - Alcohol dependence with intoxication, uncomplicated - Discharge Information Referrals: PCP,None [Primary Care Provider] - Forms: ED Department Discharge Sepsis Event Note (ED) - Focused Exam Vital Signs: Vital Signs Temp Pulse Resp BP Pulse Ox 02/28/21 23:30 36.3 C 82 16 182/96 H 97 02/28/21 23:13 36.3 C 82 16 182/96 H 97 - Problem List & Annotations (1) Alcohol dependence SNOMED Code(s): 50964701 Code(s): F10.20 - ALCOHOL DEPENDENCE, UNCOMPLICATED Status: Acute Priority: Medium Current Visit: Yes Qualifiers: Substance use status: with intoxication Complication of substance-induced condition: uncomplicated Qualified Code(s): F10.220 - Alcohol dependence with intoxication, uncomplicated - Problem List Review Problem List Initiated/Reviewed/Updated: Yes - My Orders Last 24 Hours: My Active Orders 02/28/21 23:30 MVI, Adult with Vitamin K [Infuvite Adult] 10 ml Thiamine [Vitamin B-1] 100 mg Folic Acid 1 mg Magnesium Sulfate [Magnesium Sulfate 50%] 3 gm Sodium Chloride 0.9% [Normal Saline] 1,000 ml IV ONETIME - Assessment/Plan Last 24 Hours: My Active Orders 02/28/21 23:30 MVI, Adult with Vitamin K [Infuvite Adult] 10 ml Thiamine [Vitamin B-1] 100 mg Folic Acid 1 mg Magnesium Sulfate [Magnesium Sulfate 50%] 3 gm Sodium Chloride 0.9% [Normal Saline] 1,000 ml IV ONETIME
== END 2021-03-01 02:25 ==
LOC: JP.ED 22:47
DX: F10.220 Alcohol dependence with intoxication, uncomplicated (principal); I10 Essential (primary) hypertension; F17.210 Nicotine dependence, cigarettes, uncomplicated; Z79.899 Other long term (current) drug therapy; Z20.822 Contact with and (suspected) exposure to COVID-19
CPT/HCPCS: 36415; 80053; 80305; 80307; 81003; 83690; 85025; 87635; 96365; 99284; J3411; J3475; J7030; J3490; U0002